=== PATIENT | female | born 2000 | race Caucasian/White ===

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

== ENCOUNTER 2023-03-07 10:36 | Emergency (ER) | payer OTHER, SELFPAY ==
[2023-03-07 10:45] VITALS: PULSE 75; RESP 20; TEMP 36.9; O2SAT 100
--- NOTE | 2023-03-07 10:59 | ED.GENADULT ---
HPI - General Adult General Chief complaint: Upper Respiratory Infection Stated complaint: Sore Throat Source: patient Mode of arrival: ambulatory Limitations: no limitations History of Present Illness HPI narrative: PATIENT PRESENTS FOR EVALUATION OF SICK SYMPTOMS FOR LAST 2-3 WEEKS. PRIMARY SYMPTOMS INCLUDE BILATERAL OTALGIA AND SORE THROAT. SHE HAS ALSO EXPERIENCED SOME NASAL CONGESTION, COUGH, AND CHILLS. NO FEVER, NAUSEA, VOMITING, DIARRHEA. NO RECENT SICK CONTACTS TO HER KNOWLEDGE. SHE DOES NOT SMOKE. SHE SAW HER PRIMARY PROVIDER REGARDING HER SYMPTOMS. SHE IS GIVEN STEROIDS. SHE DID NOT LIKE THE WAY THE MEDICATION MADE HER FEEL. SHE HAS AN UNDERLYING HISTORY OF ASTHMA. SHE HAS NOT REQUIRED INCREASED USE OF HER INHALER OF LATE. Related Data Home Medications Medication Instructions Recorded Confirmed norethindrone 1.5 mg-ethinyl 1 tablet PO DAILY 06/03/21 03/07/23 estradiol 30 mcg(21)/iron 75 mg(7) tablet (Junel FE 1.5/30 (28)) albuterol sulfate 2.5 mg/0.5 mL See Rx Instructions .Route 03/07/23 03/07/23 solution for nebulization .COMPLEX PRN sob Allergies Allergy/AdvReac Type Severity Reaction Status Date / Time black flag bug spray Allergy Anaphylaxis Uncoded 03/07/23 10:56 Review of Systems Review of Systems: CONSTITUTIONAL: REPORTS CHILLS. dENIES FEVER OR SWEATS. EYES: DENIES VISUAL CHANGES, REDNESS, OR DISCHARGE. ENT: REPORTS SINUS CONGESTION, SORE THROAT, BILATERAL OTALGIA CARDIOVASCULAR: DENIES CHEST PAIN, PALPITATIONS, OR EDEMA. RESPIRATORY: REPORTS COUGH. DENIES dYSPNEA. GASTROINTESTINAL: DENIES ABDOMINAL PAIN, NAUSEA, VOMITING, OR DIARRHEA. GENITOURINARY: DENIES DYSURIA OR HEMATURIA. SKIN: DENIES RASH OR ITCHING. MUSCULOSKELETAL: DENIES BACK PAIN, JOINT PAIN, OR MYALGIA. NEUROLOGIC: DENIES HEADACHE, NUMBNESS, DIZZINESS, OR WEAKNESS. PSYCHIATRIC: DENIES ANXIETY OR DEPRESSION. [facility] Past Medical History Medical History (Updated 03/07/23 @ 11:15 by Melecio Doherty, JADA, YUMIKO) Asthma GERD (gastroesophageal reflux disease) Pulmonary nodule seen on imaging study Surgical History Surgical History No pertinent past surgical history Family History Family History Mother Hypertension Cancer Depression with anxiety Heart problem Sibling Seizure Grandparent Asthma Hypertension Depression with anxiety Heart problem Grandparent Diabetes mellitus Other No active medical problems Social History Social History Smoking status: Never smoker Alcohol intake: never Substance use: never Lack of Transportation: No Lack of Food: Never True Current Housing: I Have Housing Concerned About Future Housing: No Difficulty Paying Gas/Electric Bills: No Difficulty Paying for Meds: No Currently Unemployed: No Education: High School Diploma/GED Difficulty w/ Childcare or Family Care: No Living arrangements: with family Occupation/Education: student Gender identity (if verbalized by the patient): Female Exam Narrative: GENERAL: WELL-APPEARING, WELL-NOURISHED, AND IN NO ACUTE DISTRESS. HEAD: NORMOCEPHALIC, ATRAUMATIC. EYES: PERRLA AND EOMI. ENT: NARES CLEAR, NO RHINORRHEA OR EPISTAXIS. MUCOUS MEMBRANES MOIST. OROPHARYNX WITHOUT TONSILLAR HYPERTROPHY EXUDATE OR OTHER LESIONS. POSTERIOR PHARYNGEAL ERYTHEMA. THERE IS PURULENT EXUDATE BEHIND BOTH TM'S NECK: SUPPLE. NO ADENOPATHY OR MASSES. NO CAROTID BRUITS OR JVD CHEST: CLEAR TO AUSCULTATION. NO RESPIRATORY DISTRESS. NO WHEEZES RALES OR RHONCHI HEART: REGULAR RATE AND RHYTHM. NO MURMUR HEARD. NORMAL PERIPHERAL PULSES. ABDOMEN: SOFT, NONTENDER, NONDISTENDED, NORMAL ACTIVE BOWEL SOUNDS. EXTREMITIES: NORMAL RANGE OF MOTION. NO EDEMA. SKIN: WARM, DRY, NO RASH. NEURO: NO FOCAL DEFICITS. ALERT AND ORIENTED X3. PS
== END 2023-03-07 11:06 | disposition home or self-care (01) ==
PROVIDERS: Emergency Provider Nurse Practitioner; PCP Family Medicine
DX: J02.9 Acute pharyngitis, unspecified (principal); H66.93 Otitis media, unspecified, bilateral; J45.909 Unspecified asthma, uncomplicated; K21.9 Gastro-esophageal reflux disease without esophagitis
CPT/HCPCS: 87081; 87880; 99213; G0463

== ENCOUNTER 2024-01-08 16:22 | Emergency (ER) | payer BC, SELFPAY ==
--- NOTE | ~2024-01-08 | XR_ITS ---
EXAMINATION: XR soft tissue neck DATE: 01/08/2024 17:00 INDICATION: Foreign body in right tonsil. Neck pain. TECHNIQUE: 2 views of the neck soft tissues were obtained. COMPARISON: None. FINDINGS: The palatine tonsils, adenoids, epiglottis, prevertebral soft tissues, and airway are jonathan l. IMPRESSION: 1. No radiopaque foreign body. Reviewed, dictated and finalized at location A. ED RUBBER TENDER
[2024-01-08 16:33] VITALS: BP 130/75; PULSE 81; RESP 16; TEMP 36.9; O2SAT 100
--- NOTE | 2024-01-08 16:33 | ED.URI ---
HPI - URI/Sore Throat General Chief Complaint: Skin/Abscess/Foreign Body Stated Complaint: Foreign Body in Throat/Sore Throat Time Seen by Provider: 01/08/24 16:55 Source: patient and RN notes reviewed Mode of arrival: ambulatory Limitations: no limitations History of Present Illness HPI Narrative: 23-year-old female presents with concern for foreign body in her tonsil. Reports she was eating a salad this evening when she noticed a pain in her right tonsil, her mother took a picture and noticed a foreign body protruding from the tonsil. Her mother was able to remove the object with forceps. She reports she no longer has a sensation of foreign body but she has some discomfort in her tonsil. She is able to swallow without difficulty. MD elicited complaint: sore throat Related Data Allergies Allergy/AdvReac Type Severity Reaction Status Date / Time black flag bug spray Allergy Anaphylaxis Uncoded 01/08/24 16:37 Review of Systems Review of Systems: CONSTITUTIONAL: Denies malaise, chills, sweats, or fever. ENT: Reports sore throat. RESPIRATORY: Denies cough. Denies dyspnea. All systems reviewed & are unremarkable except as noted in HPI and below [facility] Past Medical History Medical History (Updated 01/08/24 @ 17:08 by Nancy Coker NP) Asthma GERD (gastroesophageal reflux disease) Pulmonary nodule seen on imaging study Surgical History Surgical History No pertinent past surgical history Family History Family History Mother Hypertension Cancer Depression with anxiety Heart problem Sibling Seizure Grandparent Asthma Hypertension Depression with anxiety Heart problem Grandparent Diabetes mellitus Other No active medical problems Social History Social History Smoking status: Never smoker Alcohol intake: never Substance use: never Lack of Transportation: No Lack of Food: Never True Current Housing: I Have Housing Concerned About Future Housing: No Difficulty Paying Gas/Electric Bills: No Difficulty Paying for Meds: No Currently Unemployed: No Education: High School Diploma/GED Difficulty w/ Childcare or Family Care: No Living arrangements: with family Occupation/Education: student Gender identity (if verbalized by the patient): Female Comments At time of signature, agree with nursing past medical, surgical, social and family history. There is no relevant family history pertinent to the presenting complaint Exam Narrative: GENERAL: Well-appearing, well-nourished, and in no acute distress. HEAD: Normocephalic EYES: PERRLA, conjunctivae clear ENT: Nares clear. Mucous membranes moist. TM pearly davis with dull light reflex bilaterally; no tragal tenderness. Oropharynx not erythematous without lesions. Right tonsil mildly enlarged with mild erythema, no foreign body visible and without exudate, no drooling, no hoarseness, no trismus, uvula midline. NECK: Supple. No lymphadenopathy CHEST: Clear to auscultation, breath sounds equal. No wheezing, rhonchi, rales, or stridor. No respiratory distress, speaks in full sentences. HEART: Regular rate and rhythm. No murmur heard. SKIN: Warm, dry, no rash. NEURO: Alert and oriented x3. PSYCH: Normal mood and affect Course Course Emergency Course: Patient is aware of diagnosis, understands and agrees to treatment plan. Anticipatory guidance given. Patient agrees to follow-up as directed and is aware of reasons to seek care at the emergency department. Portions of this record may have been created with voice recognition software Level of Care: Express Care Visit Vital Signs Vital signs: Reviewed. MDM - URI/Sore Throat MDM Narrative Medical decision making narrative: Exam findings and imaging show no acute concerns or changes; p
== END 2024-01-08 17:10 | disposition home or self-care (01) ==
PROVIDERS: Emergency Provider Nurse Practitioner
DX: M79.5 Residual foreign body in soft tissue (principal); J45.909 Unspecified asthma, uncomplicated; K21.9 Gastro-esophageal reflux disease without esophagitis
CPT/HCPCS: 70360; 99213; G0463